=== PATIENT | male | born 1975 | race Caucasian/White ===

== ENCOUNTER 2017-11-21 12:01 | Outpatient (CLI) | payer OTHER ==
[~2017-11-21] VITALS: Ht 188 cm; Wt 113.4 kg
[~2017-11-21 12:01] MED LIST: ESOM5SUS PO; LISI1TAB8 PO; PANT40TA3 PO
== END 2017-11-21 13:35 | disposition home or self-care (01) ==
LOC: PREOP 12:01
PROVIDERS: ATTEND Surgery
DX: Z01.818 Encounter for other preprocedural examination (principal)

== ENCOUNTER 2017-11-24 07:05 | Day surgery (SDC) | payer BC, OTHER ==
[~2017-11-24] VITALS: Ht 188 cm; Wt 113.4 kg
--- OUTSIDE RECORDS SUMMARY | 2017-11-24 07:07 | XMS REPORT | Continuity of Care Document ---
Author Author [facility] Organization [facility] Address Unknown Phone Unavailable Care Team Providers Care Quality Auditor Name Role Phone ELLEN REYNOSO DO PP Insurance Providers Payer Name Policy Number Subscriber Name Relationship R [id number] Nino Mo 01 Self / Same As Patient Advance Directives Directive Response Recorded Date Advance Directives N 09/17/12 8:26am Health Care Power of Lower In Supervisor N 09/17/12 8:26am Organ Donor Y 09/17/12 8:26am Problems No Known Problems or Medical conditions. Allergies, Adverse Reactions, Alerts Allergen Type Severity Reaction Last Updated No Known Drug Allergies 10/20/08 Medications Medication Dose Units Route Sig Qty Days Esomeprazole Magnesium (Nexium) 5 Mg PO DAILY Response Recorded Date/Time Status not known Unknown Results No Known Relevant Diagnostic Tests, Laboratory Data and/or Discharge Summary. Procedures Procedure Code Date EXC SHOULDER LES SC < 3 CM 26410 UPPER GI ENDOSCOPY BIOPSY 13380 07/16/12 MRSA Screen 10/20/08
--- OUTSIDE RECORDS SUMMARY | 2017-11-24 07:07 | XMS REPORT | Continuity of Care Document ---
Author Author [facility] Organization [facility] Address Unknown Phone Unavailable Care Team Providers Care Human Resource Consultant Name Role Phone ELLEN REYNOSO DO PP Insurance Providers Payer Name Policy Number Subscriber Name Relationship R [id number] Nino Mo Self / Same As Patient Advance Directives Directive Response Recorded Date Advance Directives N 07/16/12 7:58am Health Care Power of Director Of Retail Merchandising N 07/16/12 7:58am Organ Donor Y 07/16/12 7:58am Problems No Known Problems or Medical conditions. [...] EXC SHOULDER LES SC < 3 CM 64813 MRSA Screen 10/20/08
--- OUTSIDE RECORDS SUMMARY | 2017-11-24 07:08 | XMS REPORT | Continuity of Care Document ---
Author Author [facility] Organization [facility] Address Unknown Phone Unavailable Allergies Active Description Code Type Severity Reaction Onset Reported/Identified Relationship to Patient Clinical Status Yes No Known Drug Allergies [id number] Drug Allergy Mild N/A 10/20/2008 Medications There is no data. Problems Date Dx Coded Attending Type Code Diagnosis Diagnosed By 07/16/2012 BOUCHRA LOYOLA, DILAN Jimenez Ot 530.11 REFLUX ESOPHAGITIS 09/17/2012 BOUCHRA LOYOLA, DILAN Jimenez Ot 530.11 REFLUX ESOPHAGITIS 11/19/2017 BOUCHRA LOYOLA, DILAN Jimenez Ot V72.84 EXAM PRE-OPERATIVE NOS Procedures There is no data. Results There is no data. Encounters ACCT No. Visit Date/Time Discharge Status Pt. Type Provider Facility Loc./Unit Complaint [id number] 11/19/2017 06:57:00 11/19/2017 23:59:59 CLS Outpatient JOHAN CARRANZA DO [facility] PREOP EGD [id number] 09/17/2012 07:31:00 09/17/2012 10:20:00 DIS Outpatient DILAN SHOOK MD [facility] GERD [id number] 09/09/2012 07:31:00 09/09/2012 23:59:59 CLS Outpatient DILAN SHOOK MD [facility] PREOP GERD [id number] 07/16/2012 07:37:00 07/16/2012 11:40:00 DIS Outpatient DILAN SHOOK MD [facility] GERD [id number] 07/15/2012 07:17:00 07/15/2012 23:59:59 CLS Outpatient [id number] 11/24/2017 08:00:00 PEN Preadmit JOHAN CARRANZA DO [facility] ENDO CHRONIC GASTRITIS
[2017-11-24] MEDS ORDERED: LACTATED RINGERS 1,000 ML IV ONE (07:14)
[2017-11-24] MEDS ORDERED: MIDAZOLAM 2 MG/2 ML (VERSED) VIAL ONE (07:21)
[2017-11-24] MEDS ORDERED: proPOfol 200 MG/20 ML (DIPRIVAN) VIAL IV ONE ×2 (07:21→08:15)
[2017-11-24] MEDS ORDERED: LACTATED RINGERS 1,000 ML IV STA (07:33)
[2017-11-24 07:42] VITALS: BP 114/78
[2017-11-24] MEDS ORDERED: HURRICAINE EXT TUBE (BENZOCAINE) XX PRN (07:45)
--- NOTE | 2017-11-24 08:11 | Progress Note-Pre Operative ---
Pre-Operative Progress Note H&P Reviewed The H&P was reviewed, patient examined and no changes noted. Time Seen by Provider: 08:05 Date H&P Reviewed: Nov 24, 2017 Time H&P Reviewed: 08:06 Pre-Operative Diagnosis: Chronic Gastritis JOHAN CARRANZA DO Nov 24, 2017 08:11
[2017-11-24] MEDS ORDERED: HURRICAINE EXT TUBE (BENZOCAINE) ONE (08:31)
--- NOTE | 2017-11-24 08:34 | Progress Note-Post Operative ---
Post-Operative Progess Note Surgeon (s)/Spinning Frame Fixer (s) Surgeon JOHAN CARRANZA DO Spinning Frame Fixer: none Pre-Operative Diagnosis Chronic Gastritis Post-Operative Diagnosis Same plus Gastric Polyps Procedure & Operative Findings Date of Procedure 11/24/17 Procedure Performed/Findings EGD with Polypectomy EGD with bx Anesthesia Type IV sedation by CHILD CARE GIVER Estimated Blood Loss Estimated blood loss (mL): scant Specimens/Packing Specimens Removed Antral bx Gastric polyp - body Gastric polyp - fundus GE jxn bx JOHAN CARRANZA DO Nov 24, 2017 08:34
--- NOTE | 2017-11-24 08:35 | Endoscopy Discharge Instruct ---
Endo Procedure/Findings Findings 1.: Polyp 2.: Gastritis Discharge Instructions - Activity: You might feel a little sleepy until tomorrow. This is due to the medicine you received to relax you. Until tomorrow, you should: NOT drive a car, operate machinery or power tools. NOT drink any alcoholic beverages. NOT make any important decisions or sign importortant papers. Do not return to work until tomorrow, unless otherwise instructed. Resume previous activities tomorrow. Diet: Start by taking liquids. If you tolerate liquids, advance to solid food. Make appointment for one week Notify Physician - If you experience excessive bleeding, unusual abdominal pain, fever, or chest pain, contact your doctor immediately. Follow-Up: - I have received and understand the above instructions and will call my doctor if I have any further questions. Patient Signature Date Nurse Signature Other (Relationship) JOHAN CARRANZA DO Nov 24, 2017 08:35
[2017-11-24 08:50] VITALS: BP 109/62
[2017-11-24 09:00] VITALS: BP 119/87
[2017-11-24 09:23] VITALS: BP 119/87
--- NOTE | 2017-11-24 13:29 | Anesthesia-General Post-Op ---
MAC Patient Condition Mental Status/LOC: Same as Preop Cardiovascular: Satisfactory Nausea/Vomiting: Absent Respiratory: Satisfactory Pain: Controlled Complications: Absent Post Op Complications Complications None Follow Up Care/Instructions Patient Instructions None needed. Anesthesiology Discharge Order Discharge Order Patient is doing well, no complaints, stable vital signs, no apparent adverse anesthesia problems. No complications reported per nursing. SCOTTIE CRUZ CRNA Nov 24, 2017 13:29
--- NOTE | 2017-11-24 19:37 | OPERATIVE REPORT ---
DATE OF SERVICE: 11/24/2017 PREOPERATIVE DIAGNOSIS: Chronic gastritis. POSTOPERATIVE DIAGNOSES: 1. Chronic gastritis. 2. Gastric polyps. PROCEDURES: 1. EGD with polypectomy. 2. EGD with biopsy. SURGEON: Barrie Joe DO GARDEN EQUIPMENT MECHANIC: None. ANESTHESIA: IV sedation by the CORPORATION OFFICER. SPECIMEN: One biopsy from the antrum as well as one biopsy from the GE junction, also removed gastric polyps, removed one from the body of the stomach and one from the fundus. BLOOD LOSS: Scant. FLUIDS: Per anesthesia. POSTOPERATIVE CONDITION: Stable. INDICATION FOR PROCEDURE: The patient is a 42-year-old male who has had chronic gastritis getting worse lately and needed EGD. FINDINGS: The patient had gastritis. He also had multiple polyps in the stomach. PROCEDURE NOTE: After informed consent was obtained, the patient was brought to the endoscopy suite and placed in the bed in left lateral decubitus position. He was administered IV sedation by the CORPORATION OFFICER who then monitored his vitals the entire time, heart rate, blood pressure and pulse ox and the scope was inserted down the mouth through the esophagus into the stomach. Once entering the stomach, noted some erythema in the antrum, pushed into the duodenum, it looked normal, back up into the antrum, did a biopsy and then slowly pulled back into the body of the stomach, saw a polyp, did a biopsy, removed this polyp. Retroflexed, did not really see a hiatal hernia. There was a lot more polyps in the fundus. Did another polyp biopsy at the fundus and then pulled back into the GE junction. Did a biopsy of the GE junction and then slowly withdrew the scope up the esophagus and out the mouth. The tolerated the procedure. He was recovered in the endoscopy suite. Job ID: [id number] DocumentID: [id number] Dictated Date: 11/24/2017 09:53:38 Char Filter Operator Date: 11/24/2017 19:36:35 Dictated By: BARRIE JOE DO
--- NOTE | 2017-11-27 13:57 | Physician Query-Final Dx ---
HAIDER SANCHEZ 11/27/17 1357: Clinic Account Progress/Dx Physician Query: please specify the type of polypectomy used (snare, hot biopsy, ect thank you Date of Service Nov 24, 2017 at 07:05 JOHAN CARRANZA DO 12/02/17 1435: Clinic Account Progress/Dx Physician Query: Please give diagnosis (cold biopsy) DIAGNOSIS: Diagnosis: (1) Chronic gastritis without bleeding Qualifiers: Qualified Codes: K29.30 - Chronic superficial gastritis without bleeding Diagnosis Cold biopsy Progress Note: Cold biopsy HAIDER SANCHEZ Nov 27, 2017 13:57 JOHAN CARRANZA DO Dec 02, 2017 14:35
== END 2017-11-24 09:10 | disposition home or self-care (01) ==
LOC: ENDO 07:05
PROVIDERS: ATTEND Surgery
DX: K22.70 Barrett's esophagus without dysplasia (principal); K31.7 Polyp of stomach and duodenum; K29.30 Chronic superficial gastritis without bleeding; I10 Essential (primary) hypertension; E66.9 Obesity, unspecified; Z68.32 Body mass index [BMI] 32.0-32.9, adult; Z87.891 Personal history of nicotine dependence; Z79.899 Other long term (current) drug therapy
CPT/HCPCS: 88305